=== PATIENT | female | born 1975 | race Caucasian/White ===

== ENCOUNTER 2016-08-29 05:59 | Day surgery (SDC) | payer OTHER ==
[2016-08-29 06:19] VITALS: O2SAT 100
[2016-08-29] MEDS ORDERED: Lactated Ringers 1,000 ML IV SCH (06:30)
[2016-08-29] MEDS ORDERED: Versed 2 MG/2 ML Injection IV ONE (08:00)
[2016-08-29] MEDS ORDERED: SUBLIMAZE 100 MCG/2 ML IV ONE (08:00)
[2016-08-29] MEDS ORDERED: DIPRIVAN 200 MG/20 ML IV ONE (08:00)
--- NOTE | 2016-08-29 08:55 | OP ---
SURGERY DATE/TIME: 08/29/2016 0725 PREOPERATIVE DIAGNOSES: 1) Abdominal pain. 2) Gastroesophageal reflux disease. POSTOPERATIVE DIAGNOSES: 1) Normal EGD. 2) Sigmoid colon polyp. PROCEDURES: 1) Esophagogastroduodenoscopy. 2) Colonoscopy. SURGEON: Dr. Fontana. ANESTHESIA: MAC by Romel Okeefe CRNA. ESTIMATED BLOOD LOSS: Minimal. SPECIMENS: There is a hot snare polypectomy from sigmoid colon polyp. DESCRIPTION OF PROCEDURE: After informed, written consent was obtained, the patient was taken to endoscopy suite. She underwent monitored anesthesia and a bite block was inserted. The endoscope was inserted in the posterior oropharynx. Under direct visualization the esophagus was traversed. The esophagus had a normal mucosal appearance. The gastroesophageal junction likewise was normal upon entering the stomach cavity. The gastric mucosa was rugated and normal in appearance free of any lesions or defects. Pylorus was traversed and the first and second portions of the duodenum were within normal limits. Upon withdrawal, all mucosal surfaces were inspected and again noted to be within normal limits. The scope was removed and the scopes were switched. A digital rectal exam showed normal sphincter tone and no internal lesions. External hemorrhoids are noted. The scope was inserted into the rectum and sequentially the entire colonic mucosa was traversed. The level of cecum was reached and verified with direct visualization of ileocecal valve. Upon withdrawal there were no abnormalities encountered until I reached the level of the sigmoid colon. There was a fairly large broad based pedunculated polypoid lesion in the sigmoid colon which was removed in its entirety with a snare with good cauterization. The entire lesion was removed. It was retrieved from a trap and following removal the mucosal area was noted again to be hemostatic with good result. The scope was removed and the patient was transferred to the recovery room in excellent condition.
[2016-08-29 09:13] VITALS: BP 134/88; PULSE 79
== END 2016-08-29 09:05 | disposition home or self-care (01) ==
LOC: SDC 05:59
PROVIDERS: ATTEND Family Medicine
PROC: 0DJ08ZZ Inspection of Upper Intestinal Tract, Via Natural or Artificial Opening Endoscopic (ICD-10-PCS; principal; 2016-08-29)
PROC: 0DBN8ZX Excision of Sigmoid Colon, Via Natural or Artificial Opening Endoscopic, Diagnostic (ICD-10-PCS; 2016-08-29)
DX: D12.5 Benign neoplasm of sigmoid colon (principal); K21.9 Gastro-esophageal reflux disease without esophagitis
CPT/HCPCS: 00740; 00810; 36415; 88305; J2250; J2704; J3010